=== PATIENT | female | born 1995 | race Hispanic/Latino ===

== ENCOUNTER 2017-07-16 23:41 | Emergency (ER) | payer OTHER ==
[~2017-07-16] VITALS: Ht 157.5 cm; Wt 52.2 kg
[2017-07-16] MEDS ORDERED: DOXYCYCLINE HY100 M3 PO (23:58)
== END 2017-07-17 01:08 | disposition home or self-care (01) ==
LOC: ED 23:41
DX: F41.0 Panic disorder [episodic paroxysmal anxiety] (principal); Z79.899 Other long term (current) drug therapy
CPT/HCPCS: 96372; 99282; J1200